=== PATIENT | female | born 1975 | race Caucasian/White ===

== ENCOUNTER 2025-01-11 19:42 | Emergency (ER) | payer OTHER ==
[~2025-01-11] VITALS: Ht 165.1 cm; Wt 82.0 kg
[2025-01-11 20:00] VITALS: O2SAT 96
[2025-01-11 21:08] LABS: COLOR URINE YELLOW (YELLOW); GLUCOSE URINE NEGATIVE (NEGATIVE); KETONES URINE NEGATIVE (NEGATIVE); LEUKOCYTE ESTERASE URINE 1+ (NEGATIVE); NITRITE URINE NEGATIVE (NEGATIVE); OCCULT BLOOD URINE 2+ (NEGATIVE); PROTEIN URINE NEGATIVE (NEGATIVE); SPECIFIC GRAVITY URINE 1.019 (1.005-1.030); UROBILINOGEN URINE 0.2 E.U./dL (0.2-1.0)
[2025-01-11 21:10] LABS: BASOPHILS % 0.3 % (0.0-2.0); EOSINOPHILS % 0.2 % (0.0-5.0); HEMATOCRIT. 38.1 % (36.0-48.0); LYMPHOCYTES % 11.3 % (20.0-50.0); MEAN CORPUSCULAR HEMOGLOBIN 29.6 pg (28.0-32.0); MEAN CORPUSCULAR HGB CONC 34.2 g/dL (31.0-37.0); MEAN CORPUSCULAR VOLUME 86.5 fL (81.0-99.0); MEAN PLATELET VOLUME 7.7 fl (7.4-10.4); MONOCYTES % 3.3 % (2.0-8.0); NEUTROPHILS % 84.9 % (40.0-76.0); PLATELET 294 x1000/uL (130-400); RED CELL DISTRIBUTION WIDTH 13.4 % (11.6-14.6); WHITE BLOOD COUNT 13.7 x1000/uL (4.5-11.0)
[2025-01-11 21:17] LABS: CHLORIDE 101 mEq/L (98-107); POTASSIUM 3.8 mEq/L (3.5-5.1); SODIUM 135 mEq/L (136-145)
[2025-01-11 21:18] LABS: CLARITY URINE HAZY (CLEAR)
[2025-01-11 21:18] LABS: CARBON DIOXIDE 23 mEq/L (21-32)
[2025-01-11 21:19] LABS: CALCIUM 9.5 mg/dL (8.7-10.4)
[2025-01-11 21:19] LABS: BACTERIA URINE 1+; SQUAMOUS EPITHELIAL CELL URINE 2+ /lpf (RARE/1+); WBC URINE 0-2 /hpf (0-2)
[2025-01-11 21:20] LABS: AMORPHOUS SEDIMENT URINE 1+ /lpf
[2025-01-11 21:20] LABS: HCG SCREEN NEGATIVE
[2025-01-11] MEDS: MECLIZINE 25MG TABLET PO ONE (21:21)
[2025-01-11] MEDS: ONDANSETRON HCL 4MG/2ML INJ IV ONE (21:22)
[2025-01-11] MEDS: SODIUM CHLORIDE 0.9% 1,000 ML IV ONE (21:22)
[2025-01-11 21:23] LABS: CREATININE 0.7 mg/dL (0.6-1.0); GLUCOSE 140 mg/dL (70-105); UREA NITROGEN BLOOD 13 mg/dL (9-23)
[2025-01-11 21:25] LABS: ALANINE AMINOTRANSFERASE 22 IU/L (10-49); ALBUMIN 4.6 g/dL (3.2-4.8); ASPARTATE AMINOTRANSFERASE 23 IU/L (<34)
[2025-01-11 21:26] LABS: BILIRUBIN TOTAL 0.4 mg/dL (0.1-1.0); PROTEIN TOTAL 7.1 g/dL (6.0-8.3); TROPONIN I HIGH SENSITIVITY < 4 ng/L (3.0-34)
[2025-01-11] MEDS: KETOROLAC 15MG/ML VIAL IV ONE (21:50)
[2025-01-11 22:14] VITALS: BP 112/50; PULSE 79; RESP 12; TEMP 36.6; O2SAT 100
== END 2025-01-11 22:24 | disposition home or self-care (01) ==
LOC: ER 20:34
DX: R42 Dizziness and giddiness (principal); R51.9 Headache, unspecified; I10 Essential (primary) hypertension; Z86.39 Personal history of other endocrine, nutritional and metabolic disease
CPT/HCPCS: 99285; 96374; 70450; 71045; 96361; 96375; 80053; 81003; 81025; 84703; 85025; 84484; 36415; 93005; J1885; J8597; J2405; J7030